=== PATIENT | female | born 1980 | race Caucasian/White ===

== ENCOUNTER 2021-09-23 02:23 | Inpatient (IN) | payer SELFPAY ==
[~2021-09-23] VITALS: Ht 162.6 cm; Wt 89.1 kg
[2021-09-23] VITALS (44 sets, daily range): BP systolic 96–140; BP diastolic 52–81; PULSE 76–125; TEMP 97.7–98.3
[~2021-09-23 02:23] MED LIST: CEFTIN500 MG PO; LORTAB 5/500 501 TAB PO; MIRENA52 MG; NORCO 325 MG-51 TAB PO; PRENATAL1 TA1 PO
--- NOTE | 2021-09-23 03:23 | NUR ---
@[id number] PATIENT ARRIVED ON THE UNIT Via AMBULATION ALONG WITH SPOUSE WITH A COMPLAINT OF SROM.
[2021-09-23 04:18] LABS: BASO % 0.2 % (0.0-2.0); EOS # 0.1 K/mm3 (0.0-0.7); EOS % 0.9 % (0.0-4.0); GRAN # 7.2 K/mm3 (1.4-6.5); GRAN % 75.9 % (42.2-75.2); HEMATOCRIT 40.5 % (37.0-47.0); HEMOGLOBIN 13.7 g/dl (12.5-16.0); LYMPH # 1.6 K/mm3 (1.2-3.4); LYMPH % 16.7 % (20.0-51.0); MEAN CELL VOLUME 80 fl (80.0-100.0); MEAN CORPUSCULAR HEMOGLOBIN 27 pg (27-31); MEAN CORPUSCULAR HGB CONC 34 g/dl (33.0-37.0); MEAN PLATELET VOLUME 10.3 fl (7.4-10.4); MONO # 0.6 K/mm3 (0.1-0.6); PLATELET COUNT 198 K/mm3 (130-400); RED BLOOD COUNT 5.07 M/mm3 (4.10-5.30); REDCELL DISTRIBUTION WIDTH-CV 15.1 % (11.5-14.5)
--- NOTE | 2021-09-23 04:31 | NUR ---
@[id number] DR. DIEGO WAS NOTIFIED REGARDING ROM+ POSITIVE SROM FINDINGS AND SVE /-3 37WK 5 DAYS. DOCTOR ORDER FOR ADMISSION.
--- NOTE | 2021-09-23 09:59 | NUR ---
PT REQUESTING IV PAIN MEDICINE, DOES NOT WANT EPIDURAL, NOTIFIED THAT RN WILL HAVE TO CALL DR SY AND WILL CHECK HER CERVIX PRIOR TO ADMINISTERING, PT AGREEABLE
--- NOTE | 2021-09-23 10:24 | NUR ---
0950 - STADOL 1MG GIVEN IV PUSH
--- NOTE | 2021-09-23 11:30 | NUR ---
PT REQUESTING MORE IV PAIN MEDICINE, JUANIS /-2, EXPLAINED TO PT AND THAT DR DAN WILL NOT ALLOW IV PAIN MEDICATION AFTER 6CM, PT DOES NOT WANT EPIDURAL AT THIS TIME
--- NOTE | 2021-09-23 12:41 | NUR ---
PT REQUESTING EPIDURAL, Danisha PITTS NOTIFIED AT 1205 PT REQUESTING EPIDURAL, LR BOLUS STARTED
--- NOTE | 2021-09-23 13:02 | NUR ---
1210 - D [employer] REVIEWING OFFICER TO ROOM, UP ON SIDE OF BED FOR EPIDURAL
--- NOTE | 2021-09-23 15:02 | NUR ---
1410 - ARIES MOSLEY'Danisha WITH 150CC URINE OUT 1412 - ROLES TO BEDSIDE LABOR ROOM CONVERTED TO DELIVERY ROOM, LEGS UP IN FOOT PEDALS, BIRTHING BED BROKEN DOWN
--- NOTE | 2021-09-23 15:06 | NUR ---
1415 - INSTRUCTED PT ON PUSHING WITH CTXS, PUSHING INITIATED AT THIS TIME, RN ANDD DR ROLES AT BEDSIDE 1418 - SPONTANEOUS DELIVERY OF VIABLE FEMALE INFANT, SPONTANEOUS CRY PRESENT, DRIED AND STIMULATED BY DR ROLES THEN TO MOTHERS ABD. 1ST DEGREE PERINEAL LACERATION, NOT REPAIRED
--- NOTE | 2021-09-23 16:21 | NUR ---
UP TO BATHROOM, VOIDS WITHOUT DIFFICULTY, [facility]LIT[facility] INSTRUCTED AND PERFORMED, PADS CHANGED. TOLERATES BEING UP WELL, THEN TRANSFERRED PER W/C TO ROOM 215 WITH , INFANT TO NURSERY FOR BATH WITH NURSERY RN
[2021-09-24 04:30] VITALS: BP 111/61; PULSE 85; TEMP 97.8
[2021-09-24 07:17] VITALS: BP 98/78; PULSE 87; TEMP 97.7
[2021-09-24] MEDS ORDERED: IBU800 M1 PO (08:32)
--- NOTE | 2021-09-24 10:29 | NUR ---
Initial visit; Parents thanked [employer] for offering congratulations and God's blessings for the of their daughter. [employer] thanked family for choosing [facility].
== END 2021-09-24 15:40 | disposition home or self-care (01) | DRG 807 ==
LOC: LDRO 02:23 → OB 03:38 → LDR 03:38 → OB 16:15
PROVIDERS: Obstetrics & Gynecology; ADMIT Obstetrics & Gynecology
PROC: 10E0XZZ Delivery of Products of Conception, External Approach (ICD-10-PCS; principal; 2021-09-23)
DX: O99.214 Obesity complicating childbirth (principal); Z37.0 Single live birth; O70.0 First degree perineal laceration during delivery; Z3A.37 37 weeks gestation of pregnancy; Z23 Encounter for immunization
CPT/HCPCS: J0595; J2590; J7120